=== PATIENT | female | born 1980 | race Caucasian/White ===

== ENCOUNTER 2017-09-16 18:53 | Emergency (ER) | payer OTHER ==
[~2017-09-16] VITALS: Ht 165.1 cm; Wt 73.0 kg
[~2017-09-16 18:53] MED LIST: BUPR200T2 PO; VALA500T4 PO
[2017-09-16] MEDS ORDERED: SODIUM CHLORIDE 0.9% 1,000ML IVBOLUS ONE (19:00)
[2017-09-16] MEDS ORDERED: THIAMINE 100MG TABLET PO ONE (19:00)
[2017-09-16] MEDS ORDERED: ACCUTANE (19:07)
[2017-09-16] MEDS ORDERED: THIAMINE 100MG TABLET ONE (19:13)
[2017-09-16 19:21] LABS: BASOPHILS # (AUTO) 0.01 x10^3/uL (0-0.1); BASOPHILS % (AUTO) 0 % (0-1); EOSINOPHILS % (AUTO) 0 % (1-7); LYMPHOCYTES # (AUTO) 1.36 x10^3/uL (1-3.4); LYMPHOCYTES % (AUTO) 14 % (22-44); MD NO; MEAN CORPUSCULAR HEMOGLOBIN 33.5 pg (27.0-34.8); MEAN CORPUSCULAR HGB CONC 35.1 g/dL (32.4-35.8); MEAN CORPUSCULAR VOLUME 95.3 fL (80-100); MEAN PLATELET VOLUME 7.4 fL (7.4-10.4); MONOCYTES # (AUTO) 0.61 x10^3/uL (0.2-0.8); MONOCYTES % (AUTO) 6 % (2-9); NEUTROPHILS # (AUTO) 7.61 x10^3/uL (1.8-6.8); NEUTROPHILS % (AUTO) 79 % (42-75); PLATELET COUNT 246 x10^3/uL (130-400); RED BLOOD COUNT 5.09 x10^6/uL (3.82-5.3); RED CELL DISTRIBUTION WIDTH 13.6 % (9.6-15.2)
[2017-09-16 19:25] LABS: ALBUMIN 4.1 g/dL (3.4-5.0); ANION GAP 16 mmol/L (5-15); CALCIUM 8.4 mg/dL (8.5-10.1); CHLORIDE 102 mmol/L (98-107)
[2017-09-16] MEDS ORDERED: PLEASE ENTER HEIGHT AND WEIGHT MC SCH (19:30)
[2017-09-16 20:24] VITALS: BP 131/91
== END 2017-09-16 21:08 | disposition home or self-care (01) ==
LOC: ED 20:34
DX: F10.229 Alcohol dependence with intoxication, unspecified (principal); Y90.9 Presence of alcohol in blood, level not specified
CPT/HCPCS: 36415; 80048; 82040; 85025; 99284; J7030

== ENCOUNTER 2017-09-17 12:41 | Inpatient (IN) | payer OTHER ==
[~2017-09-17] VITALS: Ht 165.1 cm; Wt 77.6 kg
[~2017-09-17 12:41] MED LIST changes: +ACCUTANE
[2017-09-17] MEDS ORDERED: SODIUM CHLORIDE 0.9% 1,000ML IVBOLUS ONE (13:30)
[2017-09-17] MEDS ORDERED: ONDANSETRON ODT 4 MG PO ONE (13:30)
[2017-09-17] MEDS ORDERED: THIAMINE 100MG TABLET PO ONE (13:30)
[2017-09-17] MEDS ORDERED: THIAMINE 100MG TABLET ONE (13:30)
[2017-09-17] MEDS ORDERED: SODIUM CHLORIDE FLUSH 10ML SYR IVF ONE (13:30)
[2017-09-17] MEDS ORDERED: LORazepam 2 MG/ML, 1ML ONE ×2 (13:31→15:05)
[2017-09-17] MEDS ORDERED: ONDANSETRON ODT 4 MG ONE (13:31)
[2017-09-17] MEDS: LORazepam 2 MG/ML, 1ML IVPush PRN ×2 (13:36→15:07)
[2017-09-17 13:47] LABS: MEAN CORPUSCULAR HEMOGLOBIN 33.1 pg (27.0-34.8); MEAN CORPUSCULAR HGB CONC 34.5 g/dL (32.4-35.8); MEAN CORPUSCULAR VOLUME 95.8 fL (80-100); MEAN PLATELET VOLUME 7.6 fL (7.4-10.4); PLATELET COUNT 198 x10^3/uL (130-400); RED BLOOD COUNT 4.41 x10^6/uL (3.82-5.3); RED CELL DISTRIBUTION WIDTH 13.4 % (9.6-15.2)
[2017-09-17 13:52] LABS: ALANINE AMINOTRANSFERASE 33 U/L (12-78); ALBUMIN 3.8 g/dL (3.4-5.0); ANION GAP 11 mmol/L (5-15); CALCIUM 8.3 mg/dL (8.5-10.1); CHLORIDE 99 mmol/L (98-107); CREATININE 0.71 mg/dL (0.55-1.02)
[2017-09-17 13:56] LABS: ALKALINE PHOSPHATASE 70 U/L (45-117); BILIRUBIN,TOTAL 1.6 mg/dL (0.2-1.0); TOTAL PROTEIN 7.2 g/dL (6.4-8.2)
[2017-09-17 14:04] LABS: BASOPHILS % (AUTO) 0 % (0-1); EOSINOPHILS % (AUTO) 0 % (1-7); LYMPHOCYTES # (AUTO) 0.41 x10^3/uL (1-3.4); LYMPHOCYTES % (AUTO) 5 % (22-44); MD SCAN; MONOCYTES % (AUTO) 2 % (2-9); NEUTROPHILS # (AUTO) 8.41 x10^3/uL (1.8-6.8); NEUTROPHILS % (AUTO) 93 % (42-75)
[2017-09-17] MEDS ORDERED: LORazepam 2 MG/ML, 1ML IV PRN ×5 (17:00)
[2017-09-17] MEDS ORDERED: ENOXAPARIN 40 MG/0.4 ML SQ SCH (17:00)
[2017-09-17] MEDS ORDERED: LORazepam 1MG TABLET PO PRN ×2 (17:00)
[2017-09-17] MEDS ORDERED: ACETAMINOPHEN 325 MG TABLET PO PRN (17:00)
[2017-09-17] MEDS ORDERED: ONDANSETRON 2MG/ML, 2ML IVPush PRN (17:00)
[2017-09-17 17:53] VITALS: BP 129/87
[2017-09-17 17:53] LABS: HEMOGLOBIN A1C 4.9 % (4.2-6.3)
[2017-09-17] MEDS: POTASSIUM CHLORIDE 10 MEQ, MVI ADULT 10 ML, FOLIC ACID 1 MG, MAGNESIUM SULFATE 1 GM in ... IV SCH (18:41)
[2017-09-17] MEDS: ENOXAPARIN 40 MG/0.4 ML SQ SCH (19:44)
[2017-09-17] MEDS: CALCIUM CARBONATE 500 MG TAB.CHEW PO SCH (19:44)
[2017-09-17 20:00] VITALS: BP 134/78
[2017-09-18] MEDS: LORazepam 0.5MG TABLET PO PRN ×2 (01:52→11:37)
[2017-09-18 02:00] VITALS: BP 139/89
[2017-09-18] MEDS ORDERED: LORazepam 1MG TABLET ONE ×2 (03:27→03:28)
[2017-09-18 05:20] LABS: BASOPHILS # (AUTO) 0.03 x10^3/uL (0-0.1); BASOPHILS % (AUTO) 1 % (0-1); EOSINOPHILS % (AUTO) 0 % (1-7); LYMPHOCYTES # (AUTO) 1.09 x10^3/uL (1-3.4); LYMPHOCYTES % (AUTO) 25 % (22-44); MD NO; MEAN CORPUSCULAR HEMOGLOBIN 33.3 pg (27.0-34.8); MEAN CORPUSCULAR HGB CONC 34.6 g/dL (32.4-35.8); MEAN CORPUSCULAR VOLUME 96.1 fL (80-100); MEAN PLATELET VOLUME 7.6 fL (7.4-10.4); MONOCYTES # (AUTO) 0.41 x10^3/uL (0.2-0.8); MONOCYTES % (AUTO) 9 % (2-9); NEUTROPHILS # (AUTO) 2.87 x10^3/uL (1.8-6.8); NEUTROPHILS % (AUTO) 65 % (42-75); PLATELET COUNT 160 x10^3/uL (130-400); RED BLOOD COUNT 4.07 x10^6/uL (3.82-5.3); RED CELL DISTRIBUTION WIDTH 13.7 % (9.6-15.2)
[2017-09-18 05:27] LABS: ALANINE AMINOTRANSFERASE 28 U/L (12-78); ANION GAP 6 mmol/L (5-15); CALCIUM 7.5 mg/dL (8.5-10.1); CHLORIDE 107 mmol/L (98-107)
[2017-09-18 05:38] LABS: ALKALINE PHOSPHATASE 60 U/L (45-117); BILIRUBIN,TOTAL 1.5 mg/dL (0.2-1.0); CREATININE 0.65 mg/dL (0.55-1.02)
[2017-09-18] MEDS ORDERED: FOLIC ACID 1 MG TABLET PO ONE (07:00)
[2017-09-18 07:12] VITALS: BP 129/85
[2017-09-18] MEDS: NEUTRA PHOS K 250 MG TABLET PO SCH ×2 (08:10→20:29)
[2017-09-18] MEDS: POTASSIUM CHLORIDE 20 MEQ TAB.ER.PRT PO SCH ×2 (08:10→17:14)
[2017-09-18] MEDS: THIAMINE 100MG TABLET PO SCH (08:10)
[2017-09-18] MEDS: MULTIVITAMIN 1 TABLET PO SCH (08:10)
[2017-09-18] MEDS: CALCIUM CARBONATE 500 MG TAB.CHEW PO SCH ×2 (08:10→20:29)
[2017-09-18] MEDS: MULTIVITAMINS/MINERALS TABLET PO SCH (08:11)
[2017-09-18 11:35] LABS: CULTURE INDICATED? YES; MICROSCOPIC NOT IND
[2017-09-18 11:43] LABS: AMPHETAMINE SCREEN, URINE Negative (Negative); BARBITURATE SCREEN, URINE Negative (Negative); BENZODIAZEPINE SCREEN, URINE Negative (Negative); CANNABINOID SCREEN, URINE Positive (Negative); COCAINE SCREEN, URINE Negative (Negative); METHADONE SCREEN, URINE Negative (Negative); OPIATE SCREEN, URINE Negative (Negative)
[2017-09-18 12:02] VITALS: BP 131/91
[2017-09-18] MEDS: POTASSIUM CHLORIDE 10 MEQ, MVI ADULT 10 ML, FOLIC ACID 1 MG, MAGNESIUM SULFATE 1 GM in ... IV SCH (17:14)
[2017-09-18 19:02] VITALS: BP 139/92
[2017-09-18] MEDS: ENOXAPARIN 40 MG/0.4 ML SQ SCH (20:29)
[2017-09-19 02:12] VITALS: BP 132/86
[2017-09-19 05:21] LABS: BASOPHILS # (AUTO) 0.02 x10^3/uL (0-0.1); BASOPHILS % (AUTO) 0 % (0-1); EOSINOPHILS % (AUTO) 0 % (1-7); LYMPHOCYTES # (AUTO) 1.52 x10^3/uL (1-3.4); LYMPHOCYTES % (AUTO) 31 % (22-44); MD NO; MEAN CORPUSCULAR HEMOGLOBIN 33.2 pg (27.0-34.8); MEAN CORPUSCULAR HGB CONC 34.1 g/dL (32.4-35.8); MEAN CORPUSCULAR VOLUME 97.4 fL (80-100); MEAN PLATELET VOLUME 8.1 fL (7.4-10.4); MONOCYTES # (AUTO) 0.46 x10^3/uL (0.2-0.8); MONOCYTES % (AUTO) 9 % (2-9); NEUTROPHILS # (AUTO) 2.84 x10^3/uL (1.8-6.8); NEUTROPHILS % (AUTO) 59 % (42-75); PLATELET COUNT 147 x10^3/uL (130-400); RED BLOOD COUNT 4.17 x10^6/uL (3.82-5.3); RED CELL DISTRIBUTION WIDTH 13.3 % (9.6-15.2)
[2017-09-19 05:34] LABS: ALBUMIN 3.1 g/dL (3.4-5.0); ANION GAP 8 mmol/L (5-15); CALCIUM 8.1 mg/dL (8.5-10.1); CHLORIDE 109 mmol/L (98-107)
[2017-09-19 05:38] LABS: ALANINE AMINOTRANSFERASE 37 U/L (12-78); ALKALINE PHOSPHATASE 64 U/L (45-117); BILIRUBIN,TOTAL 1.3 mg/dL (0.2-1.0); CREATININE 0.59 mg/dL (0.55-1.02); TOTAL PROTEIN 6.3 g/dL (6.4-8.2)
[2017-09-19 06:43] VITALS: BP 148/96
[2017-09-19] MEDS ORDERED: THIA100T6 PO (08:27)
[2017-09-19] MEDS: MULTIVITAMIN 1 TABLET PO SCH (08:27)
[2017-09-19] MEDS ORDERED: MULT1TAB60 PO (08:27)
[2017-09-19] MEDS: NEUTRA PHOS K 250 MG TABLET PO SCH (08:29)
[2017-09-19] MEDS: MULTIVITAMINS/MINERALS TABLET PO SCH (08:29)
[2017-09-19] MEDS: CALCIUM CARBONATE 500 MG TAB.CHEW PO SCH (08:31)
[2017-09-19] MEDS: POTASSIUM CHLORIDE 20 MEQ TAB.ER.PRT PO SCH (08:31)
[2017-09-19] MEDS: THIAMINE 100MG TABLET PO SCH (08:33)
== END 2017-09-19 10:10 | disposition home or self-care (01) | DRG 641 ==
LOC: ED 15:38 → EDIP 16:19 → 4WST 17:43 → DCLOUNGE 09-19 10:00
PROVIDERS: ADMIT Internal Medicine; ATTEND Internal Medicine
DX: E86.0 Dehydration (principal); F10.239 Alcohol dependence with withdrawal, unspecified; E87.1 Hypo-osmolality and hyponatremia; E87.6 Hypokalemia; E83.51 Hypocalcemia; E83.42 Hypomagnesemia; E83.39 Other disorders of phosphorus metabolism; R00.0 Tachycardia, unspecified; R45.4 Irritability and anger; R73.9 Hyperglycemia, unspecified; Z71.41 Alcohol abuse counseling and surveillance of alcoholic
CPT/HCPCS: 36415; 80053; 80307; 81003; 83036; 83735; 84100; 84443; 84703; 85025; 87086; J1650; J3475; J3480; J7042; Q0162; J2060; J7030